=== PATIENT | female | born 1985 | race African-American/Black ===

== ENCOUNTER 2017-01-20 14:38 | Inpatient (IN) | payer OTHER ==
[~2017-01-20] VITALS: Ht 162.6 cm; Wt 84.4 kg
[~2017-01-20 14:38] MED LIST: HYDR-2679 PO; HYDR-971 PO; NAPR500T PO; PNV1TABL26 PO
[2017-01-20] MEDS ORDERED: IV RINGERS,LACTATED 1000ML 1,000 ML IV SCH (15:10)
[2017-01-20] MEDS ORDERED: 0.9 % SODIUM CHLORIDE 10 ML DISP.SYRIN. IV PRN (15:15)
[2017-01-20] MEDS ORDERED: FENTANYL PF 100 MCG/2 ML VIAL. IV PRN (15:15)
[2017-01-20] MEDS ORDERED: CITRIC ACID/SODIUM CITRATE 30 ML SOLUTION. PO PRN (15:15)
[2017-01-20] MEDS ORDERED: TERBUTALINE 1 MG/ML VIAL. SQ PRN (15:15)
[2017-01-20] MEDS ORDERED: ONDANSETRON PF 4 MG/2 ML VIAL. IV PRN ×2 (15:15→20:00)
[2017-01-20] MEDS ORDERED: DOCUSATE SODIUM 283 MG/5 ML ENEMA. PR PRN (15:15)
[2017-01-20] MEDS ORDERED: BUTORPHANOL 2 MG/ML VIAL. IV PRN (15:15)
[2017-01-20] MEDS ORDERED: OXYTOCIN 30 UNIT/500 ML PREMIX 500 ML IV PRN ×2 (15:15)
[2017-01-20] MEDS ORDERED: LIDOCAINE 1% PF 30 ML VIAL. INJ PRN (15:15)
[2017-01-20] MEDS ORDERED: AMPICILLIN SODIUM 2 GM in IV NORMAL SALINE 100ML 100 ML IV ONE (15:15)
[2017-01-20 15:30] VITALS: BP 109/59
[2017-01-20] MEDS: IV RINGERS,LACTATED 1000ML 1,000 ML IV PRN ×2 (16:00→19:54)
[2017-01-20 16:02] LABS: BILIRUBIN,URINE NEGATIVE (NEG); GLUCOSE,URINE NEGATIVE (NEG); NITRITE,URINE NEGATIVE (NEG); PROTEIN,URINE NEGATIVE (NEG-TRACE); UROBILINOGEN,URINE 0.2 mg/dL (0.2 mg/dL)
[2017-01-20 16:10] LABS: BACTERIA,URINE FEW /HPF (0-FEW); SQUAMOUS EPITHELIAL CELL,UR FEW /LPF
[2017-01-20 16:13] LABS: HEMATOCRIT 35.2 % (36.0-47.0); HEMOGLOBIN 11.4 g/dL (12.0-15.5); RED BLOOD COUNT 4.38 x10^6/uL (3.50-5.40); RED CELL DISTRIBUTION WIDTH 15.2 % (11.5-14.5)
[2017-01-20 16:54] LABS: ALBUMIN 2.7 g/dL (3.4-5.0); ALBUMIN/GLOBULIN RATIO 0.7 (1.0-1.7); CALCIUM 8.7 mg/dL (8.5-10.1); CREATININE 0.6 mg/dL (0.6-1.0); GFR 141.1; TOTAL BILIRUBIN 0.3 mg/dL (0.2-1.0); TOTAL PROTEIN 6.5 g/dL (6.4-8.2); URIC ACID 4.2 mg/dL (2.6-6.0)
[2017-01-20] MEDS: AMPICILLIN SODIUM 1 GM in IV NORMAL SALINE 50ML 50 ML IV SCH ×2 (19:00→22:03)
[2017-01-20] MEDS ORDERED: ROPIVacaine 0.2% IN 0.9%NACL PF 40 MG/20 ML DISP.SYRIN. ONE (19:55)
[2017-01-20] MEDS ORDERED: FENTANYL PF 100 MCG/2 ML VIAL. EPI ONE (20:00)
[2017-01-20] MEDS ORDERED: EPHEDRINE PF IN SALINE 50 MG/5 ML DISP.SYRIN. IV PRN (20:00)
[2017-01-20] MEDS ORDERED: NALOXONE 0.4 MG/ML VIAL. IV PRN (20:00)
[2017-01-20] MEDS ORDERED: ROPIVacaine 0.2% PF 10 ML VIAL. EPI ONE (20:00)
[2017-01-20] MEDS ORDERED: L&D EPIDURAL CASSETTE 100 ML EP PRN (20:00)
[2017-01-21] MEDS: IV RINGERS,LACTATED 1000ML 1,000 ML IV PRN (00:04)
--- NOTE | 2017-01-21 01:35 | PDOC1 ---
OB - History Hx of Present Care: Good Care Ultrasounds: Normal mid trimester US Obstetrical Complications: Gestational Hypertension Medical Complications: None Other Concerns: Hx of retained placenta Past Family/Social History * Past Medical, Surgical, Family and Obstetric Histories reviewed from chart. Blood Type: O+ Rubella: Immune RPR/VDRL: Negative GBS Status: Positive HBsAG: Negative OB - Chief Complaint & HPI Date of Admission: Date of Admission: Jan 20, 2017 at 14:38 Chief Complaint/History : 4 Para: 2 EDC: Jan 30, 2017 Reason for admission: induction of labor Indication for induction: other (PIH) Admission Nurse Assessment Rev: Yes Problems: OB - Admission Exam Physical Exam Vitals: VS - Last 72 Hours, by Label Date Time Temp Pulse Resp B/P Pulse Ox O2 Delivery O2 Flow Rate FiO2 01/21/17 01:18 18 01/20/17 20:55 18 98 Room Air 01/20/17 20:55 18 98 Room Air 01/20/17 20:23 18 98 Room Air 01/20/17 20:21 20 Room Air 01/20/17 15:52 97.9 97.9 01/20/17 15:30 99 20 109/59 HEENT: Normal Heart: Regular Rate Lungs: Clear Abdomen: Gravid, Fundal Height Effacement: 75% Station: -2 Membranes: Intact Amniotic Fluid: Clear Heart Rate: Normal Accelerations: Accelerations Present Decelerations: Variable decelerations Short Term Variability: Present Shelter Variability: Moderate Contractions on Admission: None SITA ARIZA MD Jan 21, 2017 01:35
[2017-01-21] MEDS ORDERED: HYDROCODONE/APAP 5/325MG TABLET. PO PRN (01:45)
[2017-01-21] MEDS ORDERED: ZOLPIDEM 5 MG TABLET. PO PRN ×2 (01:45→15:15)
[2017-01-21] MEDS ORDERED: MAG HYDROX/ALUMINUM HYD/SIMETH 30 ML ORAL.SUSP PO PRN (01:45)
[2017-01-21] MEDS ORDERED: ACETAMINOPHEN 325 MG TABLET. PO PRN (01:45)
[2017-01-21] MEDS ORDERED: BENZOCAINE 20% TOPICAL AEROSOL SPRAY 57GM CAN. TP PRN (01:45)
[2017-01-21] MEDS ORDERED: MAGNESIUM HYDROXIDE 2,400 MG/30 ML ORAL.SUSP. PO PRN (01:45)
[2017-01-21] MEDS ORDERED: 0.9 % SODIUM CHLORIDE 10 ML DISP.SYRIN. IV PRN (01:45)
[2017-01-21] MEDS ORDERED: OXYTOCIN 30 UNIT/500 ML PREMIX 500 ML IV PRN (01:45)
[2017-01-21] MEDS ORDERED: PHENYLEPH/MINERAL OIL/PETROLAT RECTAL OINTMENT 28GM TUBE. RC PRN (01:45)
[2017-01-21] MEDS ORDERED: diphenhydrAMINE HCL 25 MG CAPSULE PO PRN (01:45)
[2017-01-21] MEDS ORDERED: HYDROCORTISONE 1% TOPICAL OINTMENT 30GM TUBE. TP PRN (01:45)
[2017-01-21] MEDS ORDERED: SIMETHICONE 80 MG TAB.CHEW PO PRN (01:45)
--- NOTE | 2017-01-21 03:27 | LDN ---
DATE OF DELIVERY: HISTORY OF PRESENT ILLNESS: This patient is a 31-year-old G4, P2, AB1, LC2, -[place] female with EDC of 01/30/2017, admitted at term with evidence of high blood pressures in the office. Negative PIH workup on admission. The patient was GBS positive and received 2 doses of ampicillin prior to delivery during labor course. CLINICAL COURSE: ____ cervix and increasing blood pressures, she was recommended to proceed with induction. This was done with Pitocin obtaining adequate labor, dilating the cervix to complete, having artificial rupture of membranes approximately 5-6 cm with clear fluid noted. The patient progressed to complete, delivering a viable male , initially delivering the head with suctioning and nuchal cord was reduced and subsequently, the shoulders were delivered and had spontaneous cry. Cord was clamped and transected and was handed off. Cord pHs were done and cord blood was obtained. Placenta was delivered intact with 3-vessel cord. Uterus was firm with Pitocin and palpation. Vaginal vault was inspected. Bilateral periurethral lacerations and a small midline perineal laceration were all noted. They were hemostatic and deemed to be first-degree, were sutured with 3-0 chromic individually in a running fashion. There is approximately 250 mL of blood loss. There was good hemostasis at end of repair. A viable male with Apgars of 8, 9 and 9 and 6 pounds 9.5 ounces. Delivery at 1:05 a.m. on 01/21/2017. No complications noted at this delivery other than the nuchal cord, which was easily reduced. SITA ARIZA MD DR: MARYANNE/catina JOB#: [id number] / [id number]
[2017-01-21 03:45] VITALS: BP 132/73
[2017-01-21] MEDS: IBUPROFEN 800 MG TABLET. PO PRN ×3 (03:48→20:02)
[2017-01-21 04:49] VITALS: BP 110/83
[2017-01-21] MEDS ORDERED: IBUPROFEN 800 MG TABLET. PO SCH (06:00)
[2017-01-21] MEDS: HYDROCODONE/APAP 5/325MG TABLET. PO PRN ×4 (07:32→23:56)
[2017-01-21 11:35] VITALS: BP 113/79
[2017-01-21 16:02] VITALS: BP 128/70
--- NOTE | 2017-01-21 17:15 | PDOC ---
PROGRESS NOTES Subjective Subjective Patient partially 12 hours and doing well. Patient states she has minimal bleeding. Patient having some abdominal cramping and pelvic pain. Patient tolerating diet and voiding well. Objective Objective Vital Signs Date Time Temp Pulse Resp B/P Pulse Ox O2 Delivery O2 Flow Rate FiO2 01/21/17 16:02 97.5 68 16 128/70 94 Room Air 97.5 Physical Exam Abdomen: Normal bowel sounds, Other (uterus firm and below umbilicus) Heart: Regular rate Extremities: Other (negative Homans sign) General: Alert Lungs: Clear to auscultation Assessment Assessment day #1 Plan Plan of Care Routine care. Comment Review of Relevant I have reviewed the following items cindy (where applicable) has been applied. Labs Laboratory Tests Test 01/20/17 15:30 01/20/17 15:45 Urine Collection Type Unknown Urine Color Yellow Urine Clarity Clear Urine pH 6.0 Urine Specific [place] 1.010 Urine Protein Negativemg/dL (NEG-TRACE) Urine Glucose (UA) Negativemg/dL (NEG) Urine Ketones (Stick) Negativemg/dL (NEG) Urine Blood Negative (NEG) Urine Nitrite Negative (NEG) Urine Bilirubin Negative (NEG) Urine Urobilinogen Dipstick 0.2mg/dL (0.2 mg/dL) Urine Leukocyte Esterase Moderate (NEG) Urine RBC 1-2/HPF (0-2) Urine WBC 5-10/HPF (0-4) Urine Squamous Epithelial Cells Few/LPF Urine Transitional Epithelial Cells Few/LPF Urine Bacteria Few/HPF (0-FEW) White Blood Count 5.0x10^3/uL (4.0-11.0) Red Blood Count 4.38x10^6/uL (3.50-5.40) Hemoglobin 11.4g/dL (12.0-15.5) Hematocrit 35.2% (36.0-47.0) Mean Corpuscular Volume 80fL (79-100) Mean Corpuscular Hemoglobin 26pg (25-35) Mean Corpuscular Hemoglobin Concent 32g/dL (31-37) Red Cell Distribution Width 15.2% (11.5-14.5) Platelet Count 240x10^3/uL (140-400) Sodium Level 137mmol/L (136-145) Potassium Level 4.0mmol/L (3.5-5.1) Chloride Level 104mmol/L (98-107) Carbon Dioxide Level 18mmol/L (21-32) Anion Gap 15 (6-14) Blood Urea Nitrogen 6mg/dL (7-20) Creatinine 0.6mg/dL (0.6-1.0) Estimated GFR (Cockcroft-Gault) 141.1 BUN/Creatinine Ratio 10 (6-20) Glucose Level 92mg/dL (70-99) Uric Acid 4.2mg/dL (2.6-6.0) Calcium Level 8.7mg/dL (8.5-10.1) Total Bilirubin 0.3mg/dL (0.2-1.0) Aspartate Amino Transf (AST/SGOT) 17U/L (15-37) Alanine Aminotransferase (ALT/SGPT) 18U/L (14-59) Alkaline Phosphatase 166U/L (46-116) Total Protein 6.5g/dL (6.4-8.2) Albumin 2.7g/dL (3.4-5.0) Albumin/Globulin Ratio 0.7 (1.0-1.7) Medications Current Medications Sodium Chloride 3 ml 3 ml QSHIFT PRN IV AFTER MEDS AND BLOOD DRAWS; Start 01/20 at 15:15; Stop 01/21/17 at 02:33; Status DC Lactated Ringer's (Iv Lactated Ringers) 1,000 ml @ 125 mls/hr Q8H IV ; Start at 15:10; Stop 01/20/17 at 15:37; Status DC Butorphanol Tartrate (Stadol) 2 mg PRN Q1HR PRN IV Severe labor pain; Start at 15:15; Stop 01/21/17 at 02:33; Status DC Fentanyl Citrate (Fentanyl 2ml Vial) 100 mcg PRN Q30MIN PRN IV Severe pain Last administered on 01/21/17t 01:18; Start 01/20/17 at 15:15; Stop 01/21/17 at 02:33; Status DC Ondansetron HCl (Zofran) 4 mg PRN Q4HRS PRN IV NAUSEA/VOMITING; Start 01/20/17 at 15:15; Stop 01/21/17 at 01:42; Status DC Citric Acid/ Sodium Citrate (Bicitra) 30 ml 1X PRN PRN PO DYSPEPSIA; Start at 15:15; Stop 01/21/17 at 02:33; Status DC Terbutaline Sulfate (Brethine) 0.25 mg 1X PRN PRN SQ SEE COMMENTS; Start at 15:15; Stop 01/21/17 at 02:33; Status DC Lidocaine HCl 30 ml 30 ml 1X PRN PRN INJ SEE COMMENTS Last administered on 01/21 01:18; Start 01/20/17 at 15:15; Stop 01/21/17 at 02:33; Status DC Ampicillin Sodium 2 gm/Sodium Chloride 100 ml @ 200 mls/hr 1X ONCE IV Last administered on 01/20/17 18:38; Start 01/20/17 at 15:15; Stop 01/21/17 at 02:33 ; Status DC Ampicillin Sodium 1 gm/Sodium Chloride 50 ml @ 100 mls/hr Q4H IV Last administered on 01/20/17 22:03; Start 01/20/17 at 19:00; Stop 01/21/17 at 01:33 ; Status DC Oxytocin/Sodium Chloride 500 ml @ 0 mls/hr CONT PRN IV SEE I/O RECORD Last administered on 01/20/17 17:34; Start 01/20/17 at 15:15; Stop 01/21/17 at 02:33 ; Status DC Oxytocin/Sodium Chloride (Oxytocin Premix Infusion) 500 ml @ 0 mls/hr CONT PRN PRN IV Post delivery bleeding; Start 01/20/17 at 15:15; Stop 01/21/17 at 01:42; Status DC Docusate Sodium 283 mg 283 mg PRN DAILY PRN [place] CONSTIPATION; Start 01/20/17 at 15:15; Stop 01/21/17 at 02:33; Status DC Lactated Ringer's (Iv Lactated Ringers) 1,000 ml @ 125 mls/hr Q8H PRN IV PER PROTOCOL Last administered on 01/21/17 00:04; Start 01/20/17 at 15:36; Stop at 02:33; Status DC Ephedrine Sulfate 10 mg PRN Q2MIN PRN IV IF SBP<90; Start 01/20/17 at 20:00; Stop 01/21/17 at 02:33; Status DC Naloxone HCl (Narcan) 0.04 mg PRN Q1MIN PRN IV SEE COMMENTS; Start 01/20/17 at 20:00; Stop 01/21/17 at 02:33; Status DC Fentanyl Citrate 100 mcg 100 mcg 1X ONCE EPI Last administered on 01/20/17 20 :21; Start 01/20/17 at 20:00; Stop 01/21/17 at 02:33; Status DC Ropivacaine/ Fentanyl/NS (Dynrikhf-Oputp-TP 3 Mcg-0.1%) 100 ml @ 14 mls/hr CONT PRN EP PAIN Last administered on 01/20/17 20:23; Start 01/20/17 at 20:00 ; Stop 01/21/17 at 02:33; Status DC Ondansetron HCl (Zofran) 4 mg PRN Q6HRS PRN IV NAUSEA/VOMITING; Start 01/20/17 at 20:00; Stop 01/21/17 at 13:28; Status DC Ropivacaine (Naropin 0.2%) 20 ml 1X ONCE EPI Last administered on 01/20/17 20 :00; Start 01/20/17 at 20:00; Stop 01/21/17 at 02:33; Status DC Ropivacaine 40 mg STK-MED ONCE .ROUTE ; Start 01/20/17 at 19:55; Stop 01/21/17 at 02:33; Status DC Sodium Chloride 10 ml 10 ml QSHIFT PRN IV AFTER MEDS AND BLOOD DRAWS; Start at 01:45; Stop 01/21/17 at 13:28; Status DC Oxytocin/Sodium Chloride (Oxytocin Premix Infusion) 500 ml @ 62.5 mls/hr CONT PRN IV SEE I/O RECORD; Start 01/21/17 at 01:45; Stop 01/21/17 at 09:44; Status DC Acetaminophen (Tylenol) 650 mg PRN Q6HRS PRN PO MILD PAIN / TEMP; Start at 01:45; Stop 01/21/17 at 13:28; Status DC Ibuprofen (Motrin) 800 mg Q8HRS PO ; Start 01/21/17 at 06:00; Stop 01/21/17 at 06:00; Status DC Magnesium Hydroxide (Milk Of Magnesia) 2,400 mg PRN DAILY PRN PO CONSTIPATION; Start 01/21/17 at 01:45; Stop 01/21/17 at 13:28; Status DC Al Hydroxide/Mg Hydroxide (Mylanta Plus Xs) 30 ml PRN Q4HRS PRN PO HEARTBURN / GAS; Start 01/21/17 at 01:45; Stop 01/21/17 at 13:28; Status DC Simethicone (Gas-X) 80 mg PRN AFTMEALHC PRN PO GAS / BLOATING; Start 01/21/17 at 01:45; Stop 01/21/17 at 13:28; Status DC Diphenhydramine HCl (Benadryl) 25 mg PRN Q6HRS PRN PO ITCHING; Start 01/21/17 at 01:45; Stop 01/21/17 at 13:28; Status DC Benzocaine (Americaine) 1 spray PRN QID PRN TP TOPICAL PAIN Last administered on 01/21/17 03:39; Start 01/21/17 at 01:45; Stop 01/21/17 at 13:28; Status DC Phenyleph/Shark Oil/Min Oil/Petrol (Preparation H) 1 george PRN QID PRN RC RECTAL PAIN; Start 01/21/17 at 01:45; Stop 01/21/17 at 13:28; Status DC Hydrocortisone (Cortaid) 1 george PRN QID PRN TP PERINEAL PAIN; Start 01/21/17 at 01:45; Stop 01/21/17 at 13:28; Status DC Ferrous Sulfate (Feosol) 325 mg BIDWMEALS PO ; Start 01/22/17 at 08:00; Stop at 08:00; Status DC Zolpidem Tartrate (Ambien) 5 mg PRN QHS PRN PO INSOMNIA, MAY REPEAT X1; Start 01/21/17 at 01:45; Stop 01/21/17 at 13:28; Status DC Info (Do NOT chart on this placeholder) 1 ea 1X PRN PRN MC SEE COMMENTS; Start 01/21/17 at 01:45; Stop 01/21/17 at 13:28; Status DC Acetaminophen/ Hydrocodone Bitart (Lortab 5/325) 1 tab PRN Q4HRS PRN PO MILD PAIN Last administered on 01/21/17t 12:37; Start 01/21/17 at 01:45; Stop at 13:28; Status DC Acetaminophen/ Hydrocodone Bitart (Lortab 5/325) 2 tab PRN Q4HRS PRN PO MODERATE PAIN, SEVERE PAIN; Start 01/21/17 at 01:45; Stop 01/21/17 at 13:28; Status DC Ibuprofen (Motrin) 800 mg PRN Q8HRS PRN PO CRAMPING Last administered on t 12:37; Start 01/21/17 at 03:37 Zolpidem Tartrate (Ambien) 5 mg PRN QHS PRN PO INSOMNIA; Start 01/21/17 at 15: 15 Acetaminophen/ Hydrocodone Bitart (Lortab 5/325) 1 tab PRN Q4HRS PRN PO PAIN; Start 01/21/17 at 15:15 Acetaminophen/ Hydrocodone Bitart (Lortab 5/325) 2 tab PRN Q4HRS PRN PO PAIN Last administered on 01/21/17 17:07; Start 01/21/17 at 15:15 Active Scripts Active Naprosyn (Naproxen) 500 Mg Tablet 500 Mg PO BID [place] 5-325 Tablet (Acetaminophen/Hydrocodone Bitart) 1 Each Tablet 1 Tab PO PRN Q6HRS PRN Lortab 7.5-325 mg Tablet (Hydrocodone/Acetaminophen) 1 Each Tablet 1 Tab PO PRN Q6HRS PRN Reported Vitamin with Low Iron (Pnv with Ca,No.72/Iron/FA) 1 Each Tablet 1 Each PO Vitals/I & O Vital Sign - Last 24 Hours 01/20/17 01/20/17 01/20/17 01/20/17 20:21 20:23 20:55 20:55 Resp 20 18 18 18 Pulse Ox 98 98 98 O2 Delivery Room Air Room Air Room Air Room Air 01/21/17 01/21/17 01/21/17 01/21/17 01:18 01:45 03:45 04:49 Temp 97.8 98.8 97.8 98.8 Pulse 74 71 Resp 18 16 18 20 B/P 132/73 110/83 Pulse Ox 98 98 O2 Delivery Room Air Room Air 01/21/17 01/21/17 11:35 16:02 Temp 97.8 97.5 97.8 97.5 Pulse 71 68 Resp 16 16 B/P 113/79 128/70 Pulse Ox 96 94 O2 Delivery Room Air Room Air SITA ARIZA MD Jan 21, 2017 17:15
[2017-01-21 22:45] VITALS: BP 113/73
[2017-01-22] MEDS: IBUPROFEN 800 MG TABLET. PO PRN ×2 (04:40→14:55)
[2017-01-22 05:00] VITALS: BP 135/78
[2017-01-22] MEDS ORDERED: FERROUS SULFATE 325 MG TABLET. PO SCH (08:00)
[2017-01-22] MEDS ORDERED: DIPHTH,PERTUSS(ACELL),TET TOX 0.5 ML DISP.SYRIN. VAX IM ONE (09:00)
[2017-01-22] MEDS: HYDROCODONE/APAP 5/325MG TABLET. PO PRN ×4 (09:18→23:50)
[2017-01-22 15:00] VITALS: BP 134/85
--- NOTE | 2017-01-22 17:48 | PDOC ---
PROGRESS NOTES Subjective Subjective Patient doing well tolerating diet no evidence of bleeding pain under good control Objective Objective Vital Signs Date Time Temp Pulse Resp B/P Pulse Ox O2 Delivery O2 Flow Rate FiO2 01/22/17 17:44 20 Room Air 01/22/17 15:00 97.9 79 134/85 99 97.9 Intake and Output 01/22/17 06:59 Intake Total 220 ml Balance 220 ml Intake Oral 220 ml # Voids 1 Physical Exam Abdomen: Normal bowel sounds Extremities: No edema, Other (negative Homans sign) General: Alert Lungs: Clear to auscultation Assessment Assessment day 1 Plan Plan of Care Routine care Comment Review of Relevant I have reviewed the following items cindy (where applicable) has been applied. Medications Current Medications Sodium Chloride 3 ml 3 ml QSHIFT PRN IV AFTER MEDS AND BLOOD DRAWS; Start 01/20 at 15:15; Stop 01/21/17 at 02:33; Status DC Lactated Ringer's (Iv Lactated Ringers) 1,000 ml @ 125 mls/hr Q8H IV ; Start at 15:10; Stop 01/20/17 at 15:37; Status DC Butorphanol Tartrate (Stadol) 2 mg PRN Q1HR PRN IV Severe labor pain; Start at 15:15; Stop 01/21/17 at 02:33; Status DC Fentanyl Citrate (Fentanyl 2ml Vial) 100 mcg PRN Q30MIN PRN IV Severe pain Last administered on 01/21/17t 01:18; Start 01/20/17 at 15:15; Stop 01/21/17 at 02:33; Status DC Ondansetron HCl (Zofran) 4 mg PRN Q4HRS PRN IV NAUSEA/VOMITING; Start 01/20/17 at 15:15; Stop 01/21/17 at 01:42; Status DC Citric Acid/ Sodium Citrate (Bicitra) 30 ml 1X PRN PRN PO DYSPEPSIA; Start at 15:15; Stop 01/21/17 at 02:33; Status DC Terbutaline Sulfate (Brethine) 0.25 mg 1X PRN PRN SQ SEE COMMENTS; Start at 15:15; Stop 01/21/17 at 02:33; Status DC Lidocaine HCl 30 ml 30 ml 1X PRN PRN INJ SEE COMMENTS Last administered on 01/21 01:18; Start 01/20/17 at 15:15; Stop 01/21/17 at 02:33; Status DC Ampicillin Sodium 2 gm/Sodium Chloride 100 ml @ 200 mls/hr 1X ONCE IV Last administered on 01/20/17 18:38; Start 01/20/17 at 15:15; Stop 01/21/17 at 02:33 ; Status DC Ampicillin Sodium 1 gm/Sodium Chloride 50 ml @ 100 mls/hr Q4H IV Last administered on 01/20/17 22:03; Start 01/20/17 at 19:00; Stop 01/21/17 at 01:33 ; Status DC Oxytocin/Sodium Chloride 500 ml @ 0 mls/hr CONT PRN IV SEE I/O RECORD Last administered on 01/20/17 17:34; Start 01/20/17 at 15:15; Stop 01/21/17 at 02:33 ; Status DC Oxytocin/Sodium Chloride (Oxytocin Premix Infusion) 500 ml @ 0 mls/hr CONT PRN PRN IV Post delivery bleeding; Start 01/20/17 at 15:15; Stop 01/21/17 at 01:42; Status DC Docusate Sodium 283 mg 283 mg PRN DAILY PRN [place] CONSTIPATION; Start 01/20/17 at 15:15; Stop 01/21/17 at 02:33; Status DC Lactated Ringer's (Iv Lactated Ringers) 1,000 ml @ 125 mls/hr Q8H PRN IV PER PROTOCOL Last administered on 01/21/17 00:04; Start 01/20/17 at 15:36; Stop at 02:33; Status DC Ephedrine Sulfate 10 mg PRN Q2MIN PRN IV IF SBP<90; Start 01/20/17 at 20:00; Stop 01/21/17 at 02:33; Status DC Naloxone HCl (Narcan) 0.04 mg PRN Q1MIN PRN IV SEE COMMENTS; Start 01/20/17 at 20:00; Stop 01/21/17 at 02:33; Status DC Fentanyl Citrate 100 mcg 100 mcg 1X ONCE EPI Last administered on 01/20/17 20 :21; Start 01/20/17 at 20:00; Stop 01/21/17 at 02:33; Status DC Ropivacaine/ Fentanyl/NS (Wyeedzmb-Cpgys-KB 3 Mcg-0.1%) 100 ml @ 14 mls/hr CONT PRN EP PAIN Last administered on 01/20/17t 20:23; Start 01/20/17 at 20:00 ; Stop 01/21/17 at 02:33; Status DC Ondansetron HCl (Zofran) 4 mg PRN Q6HRS PRN IV NAUSEA/VOMITING; Start 01/20/17 at 20:00; Stop 01/21/17 at 13:28; Status DC Ropivacaine (Naropin 0.2%) 20 ml 1X ONCE EPI Last administered on 01/20/17 20 :00; Start 01/20/17 at 20:00; Stop 01/21/17 at 02:33; Status DC Ropivacaine 40 mg STK-MED ONCE .ROUTE ; Start 01/20/17 at 19:55; Stop 01/21/17 at 02:33; Status DC Sodium Chloride 10 ml 10 ml QSHIFT PRN IV AFTER MEDS AND BLOOD DRAWS; Start at 01:45; Stop 01/21/17 at 13:28; Status DC Oxytocin/Sodium Chloride (Oxytocin Premix Infusion) 500 ml @ 62.5 mls/hr CONT PRN IV SEE I/O RECORD; Start 01/21/17 at 01:45; Stop 01/21/17 at 09:44; Status DC Acetaminophen (Tylenol) 650 mg PRN Q6HRS PRN PO MILD PAIN / TEMP; Start at 01:45; Stop 01/21/17 at 13:28; Status DC Ibuprofen (Motrin) 800 mg Q8HRS PO ; Start 01/21/17 at 06:00; Stop 01/21/17 at 06:00; Status DC Magnesium Hydroxide (Milk Of Magnesia) 2,400 mg PRN DAILY PRN PO CONSTIPATION; Start 01/21/17 at 01:45; Stop 01/21/17 at 13:28; Status DC Al Hydroxide/Mg Hydroxide (Mylanta Plus Xs) 30 ml PRN Q4HRS PRN PO HEARTBURN / GAS; Start 01/21/17 at 01:45; Stop 01/21/17 at 13:28; Status DC Simethicone (Gas-X) 80 mg PRN AFTMEALHC PRN PO GAS / BLOATING; Start 01/21/17 at 01:45; Stop 01/21/17 at 13:28; Status DC Diphenhydramine HCl (Benadryl) 25 mg PRN Q6HRS PRN PO ITCHING; Start 01/21/17 at 01:45; Stop 01/21/17 at 13:28; Status DC Benzocaine (Americaine) 1 spray PRN QID PRN TP TOPICAL PAIN Last administered on 01/21/17 03:39; Start 01/21/17 at 01:45; Stop 01/21/17 at 13:28; Status DC Phenyleph/Shark Oil/Min Oil/Petrol (Preparation H) 1 george PRN QID PRN RC RECTAL PAIN; Start 01/21/17 at 01:45; Stop 01/21/17 at 13:28; Status DC Hydrocortisone (Cortaid) 1 george PRN QID PRN TP PERINEAL PAIN; Start 01/21/17 at 01:45; Stop 01/21/17 at 13:28; Status DC Ferrous Sulfate (Feosol) 325 mg BIDWMEALS PO ; Start 01/22/17 at 08:00; Stop at 08:00; Status DC Zolpidem Tartrate (Ambien) 5 mg PRN QHS PRN PO INSOMNIA, MAY REPEAT X1; Start 01/21/17 at 01:45; Stop 01/21/17 at 13:28; Status DC Info (Do NOT chart on this placeholder) 1 ea 1X PRN PRN MC SEE COMMENTS; Start 01/21/17 at 01:45; Stop 01/21/17 at 13:28; Status DC Acetaminophen/ Hydrocodone Bitart (Lortab 5/325) 1 tab PRN Q4HRS PRN PO MILD PAIN Last administered on 01/21/17t 12:37; Start 01/21/17 at 01:45; Stop at 13:28; Status DC Acetaminophen/ Hydrocodone Bitart (Lortab 5/325) 2 tab PRN Q4HRS PRN PO MODERATE PAIN, SEVERE PAIN; Start 01/21/17 at 01:45; Stop 01/21/17 at 13:28; Status DC Ibuprofen (Motrin) 800 mg PRN Q8HRS PRN PO CRAMPING Last administered on 14:55; Start 01/21/17 at 03:37 Zolpidem Tartrate (Ambien) 5 mg PRN QHS PRN PO INSOMNIA; Start 01/21/17 at 15: 15 Acetaminophen/ Hydrocodone Bitart (Lortab 5/325) 1 tab PRN Q4HRS PRN PO PAIN Last administered on 01/22/17 11:25; Start 01/21/17 at 15:15 Acetaminophen/ Hydrocodone Bitart (Lortab 5/325) 2 tab PRN Q4HRS PRN PO PAIN Last administered on 01/22/17 17:44; Start 01/21/17 at 15:15 Diphtheria/ Tetanus/Acell Pertussis (Boostrix) 0.5 ml ONCE ONCE VAX IM ; Start 01/22/17 at 09:00; Stop 01/22/17 at 09:01; Status DC Active Scripts Active Naprosyn (Naproxen) 500 Mg Tablet 500 Mg PO BID [place] 5-325 Tablet (Acetaminophen/Hydrocodone Bitart) 1 Each Tablet 1 Tab PO PRN Q6HRS PRN Lortab 7.5-325 mg Tablet (Hydrocodone/Acetaminophen) 1 Each Tablet 1 Tab PO PRN Q6HRS PRN Reported Vitamin with Low Iron (Pnv with Ca,No.72/Iron/FA) 1 Each Tablet 1 Each PO Vitals/I & O Vital Sign - Last 24 Hours 01/21/17 01/22/17 01/22/17 01/22/17 22:45 05:00 09:18 11:25 Temp 97.9 97.7 97.9 97.7 Pulse 70 59 Resp 18 18 18 18 B/P 113/73 135/78 Pulse Ox 99 O2 Delivery Room Air Room Air 01/22/17 01/22/17 15:00 17:44 Temp 97.9 97.9 Pulse 79 Resp 18 20 B/P 134/85 Pulse Ox 99 O2 Delivery Room Air Room Air Intake and Output 01/21/17 01/21/17 01/22/17 14:59 22:59 06:59 Intake Total 220 ml Balance 220 ml SITA ARIZA MD Jan 22, 2017 17:48
[2017-01-22 23:01] VITALS: BP 125/82
[2017-01-23] MEDS: IBUPROFEN 800 MG TABLET. PO PRN ×2 (04:18→12:30)
[2017-01-23 05:30] VITALS: BP 113/74
[2017-01-23] MEDS: HYDROCODONE/APAP 5/325MG TABLET. PO PRN ×3 (10:26→16:42)
[2017-01-23 11:20] VITALS: BP 115/65
--- NOTE | 2017-01-23 13:23 | PDOC3 ---
OB DISCHARGE SUMMARY DATE OF ADMISSION: 01/20/17 DATE OF DISCHARGE: 01/23/17 REASON FOR ADMISSION: Induction of labor, Other (PIH & GBS +) PROBLEM LIST AT DISCHARGE Problems Medical Problems: (1) Term delivered Status: Acute DISCHARGE DIAGNOSIS: Others (PIH) DISCHARGE INFORMATION: Activity (no sexual activity) HOSPITAL COURSE Routine delivery and post course CONDITION AT DISCHARGE SITA Chauhan MD Jan 23, 2017 13:23
[2017-01-23 15:56] VITALS: BP 126/77
== END 2017-01-23 17:12 | disposition home or self-care (01) | DRG 775 ==
LOC: 3 SO LND 14:38 → 3 NORTH 01-21 04:00
PROVIDERS: ADMIT Family Medicine; ATTEND Family Medicine
PROC: 10E0XZZ Delivery of Products of Conception, External Approach (ICD-10-PCS; principal; 2017-01-21)
PROC: 0HQ9XZZ Repair Perineum Skin, External Approach (ICD-10-PCS; 2017-01-21)
DX: O13.4 Gestational [pregnancy-induced] hypertension without significant proteinuria, complicating childbirth (principal); O99.824 Streptococcus B carrier state complicating childbirth; O71.82 Other specified trauma to perineum and vulva; O70.0 First degree perineal laceration during delivery; Z37.0 Single live birth; Z3A.36 36 weeks gestation of pregnancy
CPT/HCPCS: 36415; 80053; 81001; 84550; 85027; 86850; 86900; 86901; 90715; J0290; J2590; J2795; J3010; J7120

== ENCOUNTER → 2017-11-10 | Outpatient (CLI) | payer OTHER | END | disposition home or self-care (01) | LOC: RAD 08:23 | DX: Z11.1 Encounter for screening for respiratory tuberculosis (principal) | CPT/HCPCS: 71046 ==

== ENCOUNTER 2019-02-06 18:50 | Emergency (ER) | payer OTHER ==
[~2019-02-06] VITALS: Ht 160 cm; Wt 84.4 kg
[~2019-02-06 18:50] MED LIST changes: +HYDR-3164 PO; -HYDR-971 PO; +NAPR-683 PO; -NAPR500T PO
--- NOTE | 2019-02-06 19:52 | PHYS DOC ---
Past Medical History Past Medical History: Anemia, Asthma Past Surgical History: No Surgical History Alcohol Use: None Drug Use: None Adult General Chief Complaint Chief Complaint: ANXIETY/PANIC ATTACK HPI HPI Patient is a 33-year-old female who presents via EMS with complaint of anxiety. Patient also indicates that she has been having some chest discomfort in her left upper chest that started this morning and states that she has some tingling down the left arm. She denies any nausea, vomiting or diaphoresis. She rates the pain at about a 4 out of 10. She describes the pain as pressure and aching. He should admits that she had smoked some marijuana just prior to calling EMS and EMS and told her perhaps the marijuana had been laced with something else. Patient does indicate that she has a history of anxiety and panic attacks. Review of Systems Review of Systems Constitutional: Denies fever or chills [] Respiratory: Denies cough or shortness of breath [] Cardiovascular: No additional information not addressed in HPI [] GI: Denies abdominal pain, nausea, vomiting, bloody stools or diarrhea [] Integument: Denies rash or skin lesions [] Neurologic: Denies headache, focal weakness or sensory changes [] All other systems were reviewed and found to be within normal limits, except as documented in this note. Current Medications Current Medications Current Medications Medications (Trade) Dose Ordered Sig/[facility] Start Time Stop Time Status Last Admin Dose Admin Aspirin (Children'S Aspirin) 324 mg 1X ONCE 02/06/19 20:15 02/06/19 20:16 DC 02/06/19 19:59 324 MG Clonidine HCl (Catapres) 0.1 mg 1X ONCE 02/06/19 20:30 02/06/19 20:31 DC 02/06/19 19:59 0.1 MG Allergies Allergies Allergies Coded Allergies Type Severity Reaction Last Updated Verified No Known Drug Allergies 09/29/14 No Physical Exam Physical Exam Constitutional: Well developed, well nourished, no acute distress, non-toxic appearance. [] HENT: Normocephalic, atraumatic, bilateral external ears normal, oropharynx moist, no oral exudates, nose normal. [] Eyes: PERRLA, EOMI, conjunctiva normal, no discharge. [] Neck: Normal range of motion, no tenderness, supple, no stridor. [] Cardiovascular:Heart rate regular rhythm, no murmur [] Lungs & Thorax: Bilateral breath sounds clear to auscultation [] Abdomen: Bowel sounds normal, soft, no tenderness. [] Skin: Warm, dry, no erythema, no rash. [] Extremities: No tenderness, no cyanosis, no clubbing, ROM intact. [] Neurologic: Alert and oriented X 3, no focal deficits noted. [] Current Patient Data Vital Signs Vital Signs Date Time Temp Pulse Resp B/P (MAP) Pulse Ox O2 Delivery O2 Flow Rate FiO2 02/06/19 20:56 77 14 123/81 (95) 97 Room Air 02/06/19 19:15 98.4 98.4 Lab Values Laboratory Tests Test 02/06/19 19:05 02/06/19 20:05 Urine Collection Type Unknown Urine Color Yellow Urine Clarity Clear Urine pH 7.0 Urine Specific [place] <=1.005 Urine Protein Negative mg/dL (NEG-TRACE) Urine Glucose (UA) Negative mg/dL (NEG) Urine Ketones (Stick) Negative mg/dL (NEG) Urine Blood Negative (NEG) Urine Nitrite Negative (NEG) Urine Bilirubin Negative (NEG) Urine Urobilinogen Dipstick 0.2 mg/dL (0.2 mg/dL) Urine Leukocyte Esterase Negative (NEG) Urine RBC 0 /HPF (0-2) Urine WBC Rare /HPF (0-4) Urine Squamous Epithelial Cells Few /LPF Urine Bacteria 0 /HPF (0-FEW) Urine Test Negative (NEG) Urine Opiates Screen Neg (NEG) Urine Methadone Screen Neg (NEG) Urine Barbiturates Neg (NEG) Urine Phencyclidine Screen Neg (NEG) Urine Amphetamine/Methamphetamine Neg (NEG) Urine Benzodiazepines Screen Neg (NEG) Urine Cocaine Screen Neg (NEG) Urine Cannabinoids Screen Pos (NEG) Urine Ethyl Alcohol Neg (NEG) White Blood Count 3.2 x10^3/uL (4.0-11.0) L Red Blood Count 4.95 x10^6/uL (3.50-5.40) Hemoglobin 12.4 g/dL (12.0-15.5) Hematocrit 38.1 % (36.0-47.0) Mean Corpuscular Volume 77 fL (79-100) L Mean Corpuscular Hemoglobin 25 pg (25-35) Mean Corpuscular Hemoglobin Concent 32 g/dL (31-37) Red Cell Distribution Width 15.8 % (11.5-14.5) H Platelet Count 264 x10^3/uL (140-400) Neutrophils (%) (Auto) 52 % (31-73) Lymphocytes (%) (Auto) 34 % (24-48) Monocytes (%) (Auto) 12 % (0-9) H Eosinophils (%) (Auto) 2 % (0-3) Basophils (%) (Auto) 1 % (0-3) Neutrophils # (Auto) 1.6 x10^3uL (1.8-7.7) L Lymphocytes # (Auto) 1.1 x10^3/uL (1.0-4.8) Monocytes # (Auto) 0.4 x10^3/uL (0.0-1.1) Eosinophils # (Auto) 0.0 x10^3/uL (0.0-0.7) Basophils # (Auto) 0.0 x10^3/uL (0.0-0.2) Sodium Level 138 mmol/L (136-145) Potassium Level 4.2 mmol/L (3.5-5.1) Chloride Level 102 mmol/L (98-107) Carbon Dioxide Level 27 mmol/L (21-32) Anion Gap 9 (6-14) Blood Urea Nitrogen 9 mg/dL (7-20) Creatinine 0.5 mg/dL (0.6-1.0) L Estimated GFR (Cockcroft-Gault) 171.9 BUN/Creatinine Ratio 18 (6-20) Glucose Level 102 mg/dL (70-99) H Calcium Level 9.3 mg/dL (8.5-10.1) Magnesium Level 1.8 mg/dL (1.8-2.4) Total Bilirubin 0.4 mg/dL (0.2-1.0) Aspartate Amino Transferase (AST) 25 U/L (15-37) Alanine Aminotransferase (ALT) 22 U/L (14-59) Alkaline Phosphatase 73 U/L (46-116) DN-Njo-V-Type Natriuretic Peptide 16 pg/mL (0-124) Total Protein 7.6 g/dL (6.4-8.2) Albumin 4.0 g/dL (3.4-5.0) Albumin/Globulin Ratio 1.1 (1.0-1.7) Laboratory Tests 02/06/19 20:05 Laboratory Tests 02/06/19 20:05 EKG EKG [] Interpretation Time: EKG demonstrates normal sinus rhythm with rate of 72. Radiology/Procedures Radiology/Procedures [] Impressions: PROCEDURE: PORTABLE CHEST 1V EXAM: Chest, single view. HISTORY: Chest pain. COMPARISON: 11/10/2017 FINDINGS: A frontal view of the chest is obtained. There is no infiltrate, pleural effusion or pneumothorax. The heart is normal in size. IMPRESSION: No acute pulmonary finding. Electronically signed by: Anu Shaw MD (02/06/2019 8:50 PM) [facility] Course & Med Decision Making Course & Med Decision Making Pertinent Labs and Imaging studies reviewed. (See chart for details) [] Dragon Disclaimer Dragon Disclaimer This electronic medical record was generated, in whole or in part, using a voice recognition dictation system. Departure Departure Impression: Primary Impression: Anxiety Additional Impression: Atypical chest pain Disposition: 01 HOME, SELF-CARE Condition: STABLE Referrals: SITA ARIZA MD (PCP) Patient Instructions: Anxiety and Panic Attacks, Chest Pain (Nonspecific) Problem Qualifiers AI ADORNO Jr. DO February 06, 2019 19:52
[2019-02-06 20:00] LABS: BILIRUBIN,URINE NEGATIVE (NEG); CLARITY,URINE CLEAR; COLOR,URINE YELLOW; NITRITE,URINE NEGATIVE (NEG); PROTEIN,URINE NEGATIVE (NEG-TRACE); UROBILINOGEN,URINE 0.2 mg/dL (0.2 mg/dL)
[2019-02-06 20:05] LABS: RBC,URINE 0 /HPF (0-2); U PREG PATIENT NEGATIVE (NEG); WBC,URINE RARE /HPF (0-4)
[2019-02-06 20:06] LABS: BACTERIA,URINE 0 /HPF (0-FEW); SQUAMOUS EPITHELIAL CELL,UR FEW /LPF
[2019-02-06 20:07] LABS: BARBITURATES NEG (NEG); BENZODIAZEPINES NEG (NEG); CANNABINOIDS POS (NEG); COCAINE NEG (NEG); METHADONE NEG (NEG); OPIATES NEG (NEG); PHENCYCLIDINE NEG (NEG)
[2019-02-06 20:09] LABS: AMPHETAMINE/METHAMPHETAMINE NEG (NEG)
[2019-02-06 20:14] LABS: BASO % 1 % (0-3); EOS % 2 % (0-3); HEMATOCRIT 38.1 % (36.0-47.0); HEMOGLOBIN 12.4 g/dL (12.0-15.5); LYMPH # 1.1 x10^3/uL (1.0-4.8); LYMPH % 34 % (24-48); MEAN CORPUSCULAR HEMOGLOBIN 25 pg (25-35); MEAN CORPUSCULAR HGB CONC 32 g/dL (31-37); MEAN CORPUSCULAR VOLUME 77 fL (79-100); MONO # 0.4 x10^3/uL (0.0-1.1); MONO % 12 % (0-9); NEUT # 1.6 x10^3uL (1.8-7.7); NEUT % 52 % (31-73); PLATELET COUNT 264 x10^3/uL (140-400); RED BLOOD COUNT 4.95 x10^6/uL (3.50-5.40); RED CELL DISTRIBUTION WIDTH 15.8 % (11.5-14.5); WHITE BLOOD COUNT 3.2 x10^3/uL (4.0-11.0)
[2019-02-06] MEDS ORDERED: ASPIRIN CHEWABLE 81 MG TABLET. PO ONE (20:15)
[2019-02-06 20:30] LABS: CALCIUM 9.3 mg/dL (8.5-10.1); CREATININE 0.5 mg/dL (0.6-1.0); GFR 171.9; POTASSIUM 4.2 mmol/L (3.5-5.1)
[2019-02-06] MEDS ORDERED: cloNIDine HCL 0.1 MG TABLET PO ONE (20:30)
[2019-02-06 20:36] LABS: ALBUMIN/GLOBULIN RATIO 1.1 (1.0-1.7); MAGNESIUM 1.8 mg/dL (1.8-2.4); TOTAL BILIRUBIN 0.4 mg/dL (0.2-1.0); TOTAL PROTEIN 7.6 g/dL (6.4-8.2)
--- NOTE | 2019-02-06 20:53 | RAD ---
EXAM: Chest, single view. HISTORY: Chest pain. COMPARISON: 11/10/2017 FINDINGS: A frontal view of the chest is obtained. There is no infiltrate, pleural effusion or pneumothorax. The heart is normal in size. IMPRESSION: No acute pulmonary finding. Electronically signed by: Anu Shaw MD (02/06/2019 8:50 PM) [facility]
[2019-02-06 20:56] VITALS: BP 123/81
--- NOTE | 2019-02-07 06:58 | EKG ---
[facility] [address] [place] [address] Test Date: 2019-02-06 Test Time: 20:12:14 Pat Name: VANESSA OATES Department: Room: Gender: F [employer]: : 1985 Requested By: AI ADORNO Order Number: [id number] Reading MD: Luis Daniel العراقي MD Measurements Intervals [place] Rate: 71 P: 21 MA: 158 QRS: 45 QRSD: 88 T: 40 QT: 364 QTc: 400 Interpretive Statements SINUS RHYTHM MODERATE AMPLITUDE CRITERIA FOR LVH NON-SPECIFIC ST/T CHANGES Electronically Signed On 03-06-2019 8:10:49 CDT by Luis Daniel العراقي MD
== END 2019-02-06 21:27 | disposition home or self-care (01) ==
LOC: ER 18:50
DX: F41.9 Anxiety disorder, unspecified (principal); R07.89 Other chest pain; R20.2 Paresthesia of skin; J45.909 Unspecified asthma, uncomplicated
CPT/HCPCS: 36415; 71045; 80053; 80307; 81001; 81025; 83735; 83880; 85025; 93005; 99285-25

== ENCOUNTER 2021-09-25 13:42 | Emergency (ER) | payer MEDICAID, OTHER ==
[~2021-09-25] VITALS: Ht 165.1 cm; Wt 65.0 kg
[2021-09-25 14:03] VITALS: BP 124/84
--- NOTE | 2021-09-25 14:30 | PHYS DOC ---
Past Medical History Past Medical History: Anemia, Asthma Past Surgical History: No Surgical History Smoking Status: Never Smoker Alcohol Use: None Drug Use: None General Adult EDM: Chief Complaint: SUTURE/STAPLE REMOVAL HPI: HPI: Patient is a 36 year old female who presents requesting suture removal. She had a liposuction and [place] butt lift procedure in [place] on 09/17. She was initially scheduled to have her sutures removed on 09/20, but they felt that she needed a few more days and that they would rather remove them on Saturday 09/22. Unfortunately, she had to return to [place], where she lives and was not able to make this follow-up appointment. Is now presenting to have her sutures removed on 09/25. States that she has been healing well, and has not had any fevers, chills, or increasing pain at the site of her surgery. Review of Systems: Review of Systems: See above. No other ROS available Heart Score: C/O Chest Pain: No Allergies: Allergies: Allergies Coded Allergies Type Severity Reaction Last Updated Verified No Known Drug Allergies 09/25/21 No Physical Exam: PE: Constitutional: Well developed, well nourished, no acute distress, non-toxic appearance. [] HENT: Normocephalic, atraumatic Cardiovascular:Heart rate regular rhythm Lungs & Thorax: Normal work of breathing Back: Several incisions on the back are well-appearing, clean, dry, intact. On the buttock she has 2 incisions at the inferior gluteal fold on each buttock. The right incisions the suture has spontaneously fallen out. The left 1 cm incisions have a single simple interrupted suture in place. All incisions are clean, dry, intact. Neurologic: Alert and oriented X 3, normal motor function, normal sensory function, no focal deficits noted. [] Psychologic: Affect normal, judgement normal, mood normal. [] Current Patient Data: Vital Signs: Vital Signs Date Time Temp Pulse Resp B/P (MAP) Pulse Ox O2 Delivery O2 Flow Rate FiO2 09/25/21 14:03 98.5 79 15 124/84 (97) 98 98.5 EKG: EKG: [] Radiology/Procedures: Radiology/Procedures: I removed 2 simple interrupted suture from 1 cm incision wounds on the left buttocks. 1 suture on the right buttock was no longer holding tension but was still present. It was removed. The wound was well approximated before and after procedure. Patient tolerated the procedure well. Course & Med Decision Making: Course & Med Decision Making Pertinent Labs and Imaging studies reviewed. (See chart for details) Patient had 3 sutures removed as above. Dragon Disclaimer: Dragon Disclaimer: This electronic medical record was generated, in whole or in part, using a voice recognition dictation system. Departure Departure Impression: Primary Impression: Visit for suture removal Disposition: HOME / SELF CARE / HOMELESS Condition: STABLE Referrals: SITA ARIZA MD (PCP) MICHELLE PENALOZA MD Sep 25, 2021 14:30
== END 2021-09-25 14:38 | disposition home or self-care (01) ==
LOC: ER 13:42
DX: Z48.01 Encounter for change or removal of surgical wound dressing (principal); J45.909 Unspecified asthma, uncomplicated; Z86.2 Personal history of diseases of the blood and blood-forming organs and certain disorders involving the immune mechanism
CPT/HCPCS: 99281

== ENCOUNTER → 2021-10-09 | Outpatient (CLI) | payer MEDICAID ==
[2021-09-25 14:03] VITALS: BP 124/84
[2021-10-09 10:21] LABS: BASO % 1 % (0-3); EOS # 0.3 x10^3/uL (0.0-0.7); EOS % 9 % (0-3); HEMATOCRIT 35.3 % (36.0-47.0); HEMOGLOBIN 11.3 g/dL (12.0-15.5); LYMPH # 1.2 x10^3/uL (1.0-4.8); LYMPH % 37 % (24-48); MEAN CORPUSCULAR HEMOGLOBIN 25 pg (25-35); MEAN CORPUSCULAR HGB CONC 32 g/dL (31-37); MEAN CORPUSCULAR VOLUME 78 fL (79-100); MONO # 0.4 x10^3/uL (0.0-1.1); MONO % 11 % (0-9); NEUT # 1.4 x10^3/uL (1.8-7.7); NEUT % 42 % (31-73); PLATELET COUNT 417 x10^3/uL (140-400); RED BLOOD COUNT 4.51 x10^6/uL (3.50-5.40); RED CELL DISTRIBUTION WIDTH 16.1 % (11.5-14.5); WHITE BLOOD COUNT 3.3 x10^3/uL (4.0-11.0)
[2021-10-10 14:11] LABS: ALPHA 1 0.2 g/dL (0.0-0.4); ALPHA 2 0.6 g/dL (0.4-1.0); BETA 1.2 g/dL (0.7-1.3); GAMMA 1.2 g/dL (0.4-1.8); IMMUNOGLOBULIN A 293 mg/dL (87-352); IMMUNOGLOBULIN G 1250 mg/dL (586-1602); IMMUNOGLOBULIN M 59 mg/dL (26-217); PROTEIN TOTAL 7.2 g/dL (6.0-8.5); SPEP AG RATIO 1.3 (0.7-1.7)
== END ==
LOC: ONCLAB 09:19
PROVIDERS: ATTEND Internal Medicine Hematology & Oncology
DX: D72.818 Other decreased white blood cell count (principal)
CPT/HCPCS: 82607; 82746; 82784; 84165; 85025; 86334; 86703; 86704; 86803; 87340